=== PATIENT | female | born 2005 | race Caucasian/White ===

== ENCOUNTER 2024-12-08 21:44 | Emergency (ER) | payer OTHER, SELFPAY ==
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
[2024-12-08 22:06] VITALS: BP 116/71
[2024-12-08 22:28] VITALS: BMI 22.1
[2024-12-08] MEDS: ZYPREXA 10 MG IM (23:00)
[2024-12-09 00:56] LABS: HCG, Serum Qualitative Screen Negative
[2024-12-09 01:07] LABS: % Basophils 0.9 % (0-2); % Eosinophils 2.2 % (0-6); % Immature Granulocytes 0.9 % (0-0.5); % Lymphocytes 36.9 % (20.5-51.1); % Monocytes 8.2 % (1.7-9.3); % Neutrophils 50.9 % (42.2-75.2); Absolute Basophils 0.1 10^3/uL (0-0.2); Absolute Eosinophils 0.2 10^3/uL (0-0.7); Absolute Immature Granulocytes 0.1 10^3/uL (0-0.05); Absolute Lymphocytes 2.9 10^3/uL (1.2-3.4); Absolute Monocytes 0.6 10^3/uL (0.1-0.6); Hematocrit 43.3 % (37.0-47.0); Hemoglobin 15.1 g/dL (12.0-16.0); Mean Corp Hgb Conc. 34.9 g/dL (33.0-37.0); Mean Corpuscular Hgb 29.8 pg (27.0-31.0); Mean Corpuscular Volume 85.6 fL (81.0-99.0); Mean Platelet Volume 9.9 fL (7.4-10.4); Nucleated Red Blood Cells % 0 %; Platelet Count 374 10^3/uL (130-400); Red Blood Cell Count 5.06 10^6/uL (4.20-5.40); Red Cell Dist. Width 12.8 % (11.5-14.5); White Blood Cell Count 7.8 10^3/uL (4.8-10.8)
[2024-12-09 01:14] LABS: ALT (SGPT) 28 U/L (0-35); AST (SGOT) 29 U/L (14-36); Albumin 5.1 g/dl (3.5-5.0); Alcohol 206 mg/dl; Alkaline Phosphatase 76 U/L (38-126); Blood Urea Nitrogen 10 mg/dl (7-17); Calcium 9.3 mg/dl (8.4-10.2); Carbon Dioxide 20 mmol/L (22-30); Chloride 108 mmol/L (98-107); Estimated Creatinine Clearance 123 ml/min; Glucose 85 mg/dl (70-99); Potassium 4.2 mmol/L (3.5-5.1); Sodium 147 mmol/L (135-145); Total Bilirubin 0.7 mg/dl (0.2-1.3); Total Protein 7.7 g/dl (6.3-8.2); eGFR > 60.00
[2024-12-09 01:31] VITALS: BP 96/65
[2024-12-09] MEDS: ATIVAN 2 MG IM (03:05)
[2024-12-09] MEDS: ZYPREXA 10 MG IM (03:14)
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
[2024-12-09] MEDS: LIBRIUM 10 MG PO ×2 (14:32→21:33)
[2024-12-09] MEDS: LIORESAL 5 MG PO ×2 (14:47→22:36)
[2024-12-09 15:15] VITALS: BP 121/77
[2024-12-09 20:39] VITALS: BP 132/85
[2024-12-09] MEDS: SEROQUEL 25 MG PO (20:40)
[2024-12-09 23:01] LABS: Amphetamines Negative (Negative); Barbiturates Negative (Negative); Benzodiazepines Positive (Negative); Buprenorphine Negative (Negative); Cocaine Negative (Negative); Marijuana Positive (Negative); Methadone Negative (Negative); Methamphetamines Negative (Negative); Opiates Negative (Negative); Phencyclidine Negative (Negative); Tricyclic Antidepressants Positive (Negative)
[2024-12-09 23:42] LABS: Fentanyl, Urine Negative (Negative)
[2024-12-09 23:43] VITALS: BP 115/73
[2024-12-10 01:26] VITALS: BP 127/94
[2024-12-10] MEDS: MINIPRESS 3 MG PO (01:29)
[2024-12-10 07:37] VITALS: BP 136/89
[2024-12-10] MEDS: LIORESAL 5 MG PO ×2 (08:04→18:23)
--- NOTE | 2024-12-10 12:32 | W.PN.UPDATE ---
Addendum entered and electronically signed by Elise Hardin MD 12/10/24 12:38:
have ordered 50 mg qhs seroquel in the event patient remains here tonight and prn of librium 20 mg which she feels works to calm her.
Original Note:
Update Note
Progress Note Update
patient seen chart reviewed. patient noted to have hairline fx of ankle. unknown when it occurred now has a boot but is fully ambulatory. the patient was committed under section 303 to 14 d in pt rx. she was very upset afterwards but agreed to
accept librium 25 mg and asked if she could take seroquel which is appropriate 50 mg ordered. the patient talked some more about meds she has taken in the past which included vyvanse. i suggested to her that vyvanse may contribute to psychosis and
if a dx of adhd is substantiated she should only take stimulants when her bipolar disorder is under control crisis will seek a psychiatric hospital bed for her.
[2024-12-10] MEDS: SEROQUEL 50 MG PO (12:46)
[2024-12-10] MEDS: LIBRIUM 20 MG PO (12:47)
--- NOTE | 2024-12-10 13:48 | ED.CRISIS ---
ED Crisis Note
ED Crisis Note
Subjective:
19-year-old female with psychosis under 303, requesting Tylenol for ankle fracture.
Objective:
No acute distress, boot in place on right.
X-ray right ankle consistent with submillimeter chip fracture at the tip of lateral malleolus
Assessment/Plan:
19-year-old female with psychosis, chip fracture right lateral malleolus. Boot in place. Patient being seen by psych and awaits placement
--- NOTE | 2024-12-10 15:05 | W.PN.UPDATE ---
Update Note
Progress Note Update
spoke to patient's mother this afternoon. mother wanted to make sure i knew patient had hx of tbi and was seeing dr armond valentin which patient had already told me. mother also informed me that she was considering a pfa against radha but she has
not made that decision yet.
[2024-12-10] MEDS: LIBRIUM 10 MG PO (18:23)
== END 2024-12-10 19:29 ==
LOC: EMR 21:44
PROVIDERS: EMERGENCY PHYSICIAN Emergency Medicine; OTHER PHYSICIAN Psychiatry & Neurology Psychiatry
DX: F23 Brief psychotic disorder (principal); F30.9 Manic episode, unspecified; F22 Delusional disorders; S82.61XA Displaced fracture of lateral malleolus of right fibula, initial encounter for closed fracture; W22.09XA Striking against other stationary object, initial encounter; R45.6 Violent behavior; F31.9 Bipolar disorder, unspecified; Z91.148 Patient's other noncompliance with medication regimen for other reason; F41.9 Anxiety disorder, unspecified; F32.A Depression, unspecified; F10.90 Alcohol use, unspecified, uncomplicated; Y90.7 Blood alcohol level of 200-239 mg/100 ml; K58.9 Irritable bowel syndrome, unspecified; F17.290 Nicotine dependence, other tobacco product, uncomplicated; G47.9 Sleep disorder, unspecified; Z87.820 Personal history of traumatic brain injury; Z88.1 Allergy status to other antibiotic agents; Z88.3 Allergy status to other anti-infective agents; Z88.0 Allergy status to penicillin
CPT/HCPCS: 29515; 73610; 73630; 80053; 80306; 80307; 82077; 84703; 85025; 96372; 99285; J2358

== ENCOUNTER 2025-01-22 11:28 | Emergency (ER) | payer OTHER, SELFPAY ==
[2025-01-22 11:28] VITALS: BP 102/58
[2025-01-22 11:37] VITALS: BP 117/78
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
[2025-01-22] MEDS: ATIVAN 0.5 MG PO ×3 (13:09→22:06)
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
[2025-01-22 18:57] LABS: HCG, Urine Qualitative Screen Negative
[2025-01-22 19:02] LABS: Amphetamines Negative (Negative); Barbiturates Negative (Negative); Benzodiazepines Negative (Negative); Buprenorphine Negative (Negative); Cocaine Negative (Negative); Marijuana Positive (Negative); Methadone Negative (Negative); Methamphetamines Negative (Negative); Opiates Negative (Negative); Phencyclidine Negative (Negative); Tricyclic Antidepressants Negative (Negative)
[2025-01-22] MEDS: SEROQUEL 50 MG PO (19:40)
[2025-01-22 22:05] VITALS: BP 102/58
[2025-01-22] MEDS: NEURONTIN 300 MG PO (22:06)
== END 2025-01-22 22:30 ==
LOC: EMR 11:28
PROVIDERS: EMERGENCY PHYSICIAN Emergency Medicine
DX: F29 Unspecified psychosis not due to a substance or known physiological condition (principal); F43.10 Post-traumatic stress disorder, unspecified; F10.10 Alcohol abuse, uncomplicated; J45.909 Unspecified asthma, uncomplicated; F31.9 Bipolar disorder, unspecified; K58.9 Irritable bowel syndrome, unspecified; F17.290 Nicotine dependence, other tobacco product, uncomplicated
CPT/HCPCS: 99283; 80306; 81025